=== PATIENT | male | born 1960 | race Caucasian/White ===

== ENCOUNTER 2018-04-28 03:37 | Observation (INO) | payer BC ==
[~2018-04-28] VITALS: Ht 175.3 cm; Wt 88.6 kg
--- NOTE | ~2018-04-28 | OP ---
PATIENT NAME: KAL AQUINO MEDICAL RECORD: [id number] :62 LOCATION:D.M2 D.2101 ADMISSION DATE:04/28/18 SURGEON: MAURA SKINNER MD DATE OF OPERATION: 04/28/2018 PROCEDURES: 1. PTCA stent LAD. 2. Left heart catheterization. 3. Selective coronary angiography. 4. Left ventriculogram. INDICATION: Angina and coronary artery disease. PROCEDURE IN DETAIL: After informed consent was obtained, and after a detailed description of risks, benefits as well as alternative therapies, the patient elected to proceed with angiogram and angioplasty. The right radial area was prepped and draped in normal sterile fashion. Right radial artery was cannulated via modified Seldinger technique with placement of 6-Uzbek sheath. All catheters exchanged through this sheath. FINDINGS: Left ventriculogram was performed in standard 30-degree FAJARDO view, reveals good cardiac wall motion throughout all segments. Overall ejection fraction estimated at 55% to 60%. SELECTIVE CORONARY ANGIOGRAPHY: 1. Left main is with no significant angiographic disease. 2. Left anterior descending has a long area of 95% stenosis throughout the mid vessel. 3. The left circumflex has 95% stenosis of the first obtuse marginal, 90% stenosis in the distal circumflex. 4. Right artery has a long area of 80% and 90% stenosis. PTCA STENT OF THE LAD: The stents used were 2.5 x 38 and 3.0 x 12, both Patrick stents. Result was 0% residual stenosis. OVERALL IMPRESSION: Successful PTCA stent of the LAD from long area of 90+ percent stenosis to 0% residual. TRANSINT:[id number] Voice Confirmation ID: [id number] DOCUMENT ID: [id number] MAURA SKINNER MD at 1059 CC: [id number] DICTATION DATE: 04/28/18 1323 SEO SPECIALIST: 04/28/18 1413 DIS IN 04/29/18 [place] [address]
--- NOTE | ~2018-04-28 | MORECARE ---
CASE MANAGEMENT DISCHARGE SUMMARY PATIENT: KAL AQUINO UNIT: [id number] ADM DATE: 04/28/18 AGE: 58 : 62 SEX: M ROOM/BED: D.2101 AUTHOR: SONA SUERO PHYSICIAN: REFERRING PHYSICIAN: HERBIE SOTO MD DATE OF SERVICE: 04/30/18 Discharge Plan Patient Name: KAL AQUINO Facility: [facility]:[place] : 1960 Planned Disposition: Home Anticipated Discharge Date: 04/29/18 Discharge Date: 04/29/2018 Expected LOS: 1 Initial Reviewer: [email or web address] Initial Review Date: 04/30/2018 Generated: 04/30/18 9:43 am Patient Name: KAL AQUINO Page [id number] at 0844 All edits/amendments must be made on the electronic document DICTATION DATE: 04/30/18842 MEDICAL BILLING AND CODING INSTRUCTOR: KRANTHI 04/30/18842 RPT#: [id number] DC DATE:04/29/18 STATUS: DIS IN [facility] [address] [place] [address] END OF REPORT
--- NOTE | ~2018-04-28 | HEMODYNAMI ---
PATIENT:KAL AQUINO MEDICAL RECORD: [id number] : 62 LOCATION:[address] ADMISSION DATE: 04/28/18 Generatedon:04/28/201813:20 Patient name: KAL AQUINO Patient #: [id number] SSN: : 1960 Date of study: 04/28/2018 Page: Of Hemodynamic Procedure Report Patient Data Patient Demographics Procedure consent was obtained First Name: KAL Gender: Male Last Name: KENIA : 1960 Patient #: [id number] Age: 58 year(s) Race: Unknown Additional ID: [id number] Contact details Address: [address] [place] [address] State: [place] City: [place] Zip code: [address] Past Medical History Allergies: No known allergies Admission Admission Data Admission Date: 04/28/2018 Admission Time: 3:56 Room #: 210 Lab Results Lab Result Date: 04/28/2018 Lab Result Time: 11:50 Biochemistry Name Units Result Min Max BUN mg/dl 8 --(*---)-- 7 18 Creatinine mg/dl 0.7 --(*---)-- 0.6 1.3 CBC Name Units Result Min Max Hematocrit % 44.4 --(*---)-- 42 54 Hemoglobin g/dl 16.1 --(--*-)-- 13.5 17.5 Procedure Procedure Types Cath Procedure Diagnostic Procedure [facility] w/Coronaries Sedation Charges Moderate Sedation up to 15 minutes PCI Procedure Coronary Stent Coronary Stent Initial Procedure Description Procedure Date Procedure Date: 04/28/2018 Procedure Start Time: 13:01 Procedure End Time: 13:18 Procedure Staff Name Function Cameron Clifton MD Performing Physician Josef Gonzales RT Monitor Araceli Coles RN Nurse Meena Fuentes RT Scrub Ruben Chambers RN Podiatry Doctor Procedure Data Cath Procedure Fluoroscopy Diagnostic fluoroscopy Total fluoroscopy Time: 4.5 time: 4.5 min min Diagnostic fluoroscopy Total fluoroscopy dose: 847 dose: 847 mGy mGy Contrast Material Contrast Material Type Amount (ml) Isovue 300 99 Entry Location Entry Primary Successful Side Size Upsize Upsize Entry Closure Bhandari ccessful Closure Location (Fr) 1 (Fr) 2 (Fr) Remarks Device Remarks Radial Right 6 Fr Mechanical artery Short Compression Estimated blood loss: 10 ml Diagnostic catheters Device Type Used For End Catheter Placement DIAGNOSTIC [place] 110cm 5 Procedure Fr catheter ([id number]) Procedure Complications No complications Procedure Medications Medication Administration Route Dosage 0.9% NaCl I.V. 100 ml/hr Oxygen etCO2 Nasal cannula 2 l/min Lidocaine 2% added to field 20 Heparin Flush Bag added to field 2 bags (1000units/500ml NS) Radial Cocktail added to field 1 syringe (Verapomil 2mg/Nitro 400mcg/Heparin 1500units) Versed I.V. 2 mg Fentanyl I.V. 50 mcg Versed I.V. 1 mg Heparin Bolus I.V. 4000 units Hemodynamics Rest HGB: 16.1 (g/dl) Heart Rate: 84 (bpm) Snapshots Pre Cath Intra NCS Post Cath Vital Signs Time Heart Resp SPO2 etCO2 NIBP (mmHg) Rhythm Pain Sedation Rate (ipm) (%) (mmHg) Status Level (bpm) 12:37:44 83 13 98 29.9 143/87(135) NSR 0 (11) 10(A) , No pain 12:42:03 82 16 99 16.4 127/81(105) NSR 0 (11) 10(A) , No pain 12:46:17 81 14 97 30 130/81(108) NSR 0 (11) 10(A) , No pain 12:50:31 83 14 96 32.2 122/81(106) NSR 0 (11) 10(A) , No pain 12:54:44 80 14 96 32.2 123/84(98) NSR 0 (11) 10(A) , No pain 12:59:01 81 13 96 32.2 123/80(94) NSR 0 (11) 10(A) , No pain 13:03:13 84 15 96 30.7 124/82(95) NSR 0 (11) 10(A) , No pain 13:07:22 90 15 97 29.9 111/73(97) NSR 0 (11) 9(A) , No pain 13:11:35 86 14 96 31.4 126/78(102) NSR 0 (11) 9(A) , No pain 13:15:48 89 16 98 30.7 141/87(119) NSR 0 (11) 10(A) , No pain Medications Time Medication Route Dose Verified Delivered Reason Not es Effectiveness by by 12:11:11 0.9% NaCl I.V. 100 Cameron Araceli used for ml/hr Elodia Coles safety investigator/cause analyst 12:11:19 Oxygen etCO2 2 l/min Cameron Araceli used for Nasal Elodia Coles procedure cannula RN 12:11:26 Lidocaine 2% added 20ml Cameron Cameron for local to vial Elodia Clifton MD anesthetic field 12:11:31 Heparin Flush added 2 bags Cameron Cameron used for Bag to Elodia Clifton MD procedure (1000units/500ml field NS) 12:36:41 Radial Cocktail added 1 Cameron Cameron used for (Verapomil to syringe Elodia Clifton MD procedure 2mg/Nitro field 400mcg/Heparin 1500units) 12:58:31 Versed I.V. 2 mg Cameron Araceli for sedation Elodia Coles RN 12:58:47 Fentanyl I.V. 50 mcg Cameron Araceli for sedation Elodia Coles RN 13:03:47 Versed I.V. 1 mg Cameron Araceli for sedation Elodia Coles RN 13:06:56 Heparin Bolus I.V. 4000 Cameron Araceli for bev ified units Elodia Coles anticoagulation with Dr. ROSALIA Clifton Procedure Log Time Note 12:07:31 Time tracking: Regular hours (M-F 7:00 - 5:00) 12:07:36 Plan of Care:Hemodynamics will remain stable., Cardiac rhythm will remain stable., Comfort level will be maintained., Respiratory function will remain adequate., Patient/ family verbilizes understanding of procedure., Procedure tolerated without complication., Recovers from procedure without complications.. 12:11:11 0.9% NaCl 100 ml/hr I.V. was administered by Araceli Coles RN; used for procedure; 12:11:19 Oxygen 2 l/min etCO2 Nasal cannula was administered by Araceli Coles RN; used for procedure; 12:11:26 Lidocaine 2% 20ml vial added to field was administered by Cameron Clifton MD; for local anesthetic; 12:11:31 Heparin Flush Bag (1000units/500ml NS) 2 bags added to field was administered by Cameron Clifton MD; used for procedure; 12:18:27 Ruben Chambers RN sent for patient. Start room use. 12:29:50 Patient received from PCU to CCL 1 Alert and oriented. Tansferred to table in Supine position. 12:29:59 Warm blankets applied, and doron hugger turned on for patient comfort. 12:29:59 Correct patient and procedure confirmed by team. 12:30:01 Signed procedure consent form obtained from patient. 12:30:01 ECG and BP/O2 sat monitors applied to patient. 12:30:02 Full Disclosure recording started 12:36:32 Vital chart was started 12:36:41 Radial Cocktail (Verapomil 2mg/Nitro 400mcg/Heparin 1500units) 1 syringe added to field was administered by Cameron Clifton MD; used for procedure; 12:45:04 Baseline sample Acquired. 12:45:08 Rhythm: sinus rhythm 12:46:39 H&P Date Dictated: 04/28/2018 Within 30 days and on chart.. 12:46:40 Pre-procedure instructions explained to patient. 12:46:41 Pre-op teaching completed and patient verbalized understanding. 12:46:54 Family in waiting room. 12:46:57 Patient NPO since Breakfast. 12:47:05 Patient allergic to No known allergies 12:47:06 Is the patient allergic to Iodine/contrast media? No. 12:48:18 Is patient on blood thinner?No 12:48:22 Patient diabetic? Yes. 12:48:24 If diabetic: On Metformin? No 12:48:39 Previous problem with sedation/anesthesia? No ? 12:48:41 Snore? Yes 12:48:44 Sleep apnea? No 12:48:45 Deviated septum? No 12:48:46 Opens mouth fully? Yes 12:48:48 Sticks out tongue? Yes 12:48:57 Airway obstruction? Yes Possible COPD 12:49:01 Dentures? No ? 12:49:03 Pre procedure: right dorsailis pedis pulse 2+ Normal; easily identifiable; not easily obliterated 12:49:08 Modified Carrillo's test Ulnar < 7 seconds 12:49:10 Patient pain scale 0/10 ?. 12:49:15 IV patent on arrival in right forearm with 0.9% NaCl at [facility]. 12:50:00 Lab Result : BUN 8 mg/dl 12:50:00 Lab Result : Creatinine 0.7 mg/dl 12:50:00 Lab Result : Hemoglobin 16.1 g/dl 12:50:00 Lab Result : Hematocrit 44.4 % 12:50:03 Lab results completed and on chart. 12:50:10 Right Radial & Right Groin area was prepped with chlora-prep and draped in sterile fashion 12:50:11 Alarms reviewed by R. N. 12:50:11 Sharps counted by scrub and verified by R.N. 12:50:14 Use device set Radial Dx or PCI 12:50:15 ACIST Syringe (05623) opened to sterile field. 12:50:15 Medline Cath Pack ([id number]) opened to sterile field. 12:50:15 Bag Decanter (2002S) opened to sterile field. 12:50:16 ACIST Manifold (86798) opened to sterile field. 12:50:17 ACIST Hand Control (27694) opened to sterile field. 12:50:17 Tegaderm 4 x 4 (1626W) opened to sterile field. 12:50:18 MBrace Wrist Support ([id number]) opened to sterile field. 12:50:19 DIAGNOSTIC WIRE .035 260cm J wire (830659) opened to sterile field. 12:50:27 SHEATH 6FR Slender ([id number]) opened to sterile field. 12:52:46 Zero performed for pressure channel P1 12:58:31 Versed 2 mg I.V. was administered by Araceli Coles RN; for sedation; 12:58:46 Physician arrived 12:58:46 --------ALL STOP TIME OUT------ 12:58:47 Fentanyl 50 mcg I.V. was administered by Araceli Coles RN; for sedation; 12:58:47 Final Timeout: patient, procedure, and site verified with staff and physician. All members of the team are in agreement. 12:58:49 Right Radial & Right Groin site verified by team. 12:58:52 Physical assessment completed. ASA score P 2 - A patient with mild systemic disease as per Cameron Clifton MD. 12:58:56 Sedation plan: IV Moderate Sedation Medication:Versed, Fentanyl 13:01:03 Procedure started. 13:01:06 Local anesthetic to right radial artery with Lidocaine 2% by Cameron Clifton MD.INITIAL ACCESS ONLY 13:02:37 SHEATH 6FR Slender ([id number]) opened to sterile field. 13:02:43 A 6 Fr Short sheath was inserted into the Right Radial artery 13:02:49 A DIAGNOSTIC [place] 110cm 5 Fr catheter (008893) was advanced over the wire and used for Procedure. 13:03:47 Versed 1 mg I.V. was administered by Araceli Coles RN; for sedation; 13:04:03 LV gram done using FAJARDO 13:04:05 Injector settings: Ml/sec: 5, Volume: 15, 13:04:09 LV hemodynamics recorded. 13:04:12 EF : 60 % 13:04:16 LCA angiography performed. 13:04:38 CHOICE PT Extra Support 182cm wire ([id number]) opened to sterile field. 13:04:39 INFLATOR Merit BasixCompak (DI6421) opened to sterile field. 13:05:12 RCA angiography performed. 13:05:45 GUIDE 6FR XBLAD 3.5 catheter ([id number]) opened to sterile field. 13:06:56 Heparin Bolus 4000 units I.V. was administered by Araceli Coles RN; for anticoagulation; verified with Dr. Clifton 13:07:46 Catheter removed. 13:07:57 6 Fr XBLAD 3.5 guide catheter was inserted over the wire 13:08:32 CHOICE PT ES wire advanced. 13:08:34 Wire advanced across lesion. 13:09:43 Inflate balloon Inflation number: 1 A EUPHORA 2.5 x 30 Balloon ([id number]) was prepped and advanced across the Prox LAD, then inflated to 17 HARRY for 0:10 (min:sec). 13:09:57 Inflation number: 2 The EUPHORA 2.5 x 30 Balloon ([id number]) was reinflated across the Prox LAD, to 17 HARRY for 0:10 (min:sec). 13:10:08 Balloon removed over the wire. 13:11:28 Place stent Inflation Number: 3 A ANYA RX 2.5 x 38 stent ([id number]) was prepped and advanced across the Prox LAD. The stent was deployed at 17 HARRY for 0:10 (min:sec). 13:12:28 Stent catheter was removed intact over wire. 13:13:47 Place stent Inflation Number: 4 A ANYA RX 3.0 x 12 stent ([id number]) was prepped and advanced across the Prox LAD. The stent was deployed at 17 HARRY for 0:10 (min:sec). 13:14:58 Wire removed. 13:14:59 Guide catheter removed. 13:15:02 TR BAND Standard ([id number]) opened to sterile field. 13:15:10 Sheath removed intact; hemostasis achieved with Mechanical Compression to the Right Radial artery. 13:15:12 Procedure ended.(Physican Out) 13:16:43 Fluoroscopy time 04.50 minutes. 13:16:48 Fluoroscopy dose: 847 mGy 13:16:48 Flurop Dose total: 847 13:16:51 Contrast amount:Isovue 300 99ml. 13:16:52 Sharps counted by scrub and verified by R.N. 13:16:53 Insertion/operative site no bleeding no hematoma. 13:17:23 Post Procedure Pulses reassessed and unchanged 13:17:26 Post-procedure physical assessment completed. ASA score P 2 - A patient with mild systemic disease as per Cameron Clifton MD. 13:17:28 Post procedure rhythm: unchanged. 13:17:30 Estimated blood loss: 10 ml 13:17:32 Post procedure instruction explained to patient.Patient verbalizes understanding. 13:17:32 Patient needs reinforcement of post procedure teaching. 13:17:38 Procedure type changed to Cath procedure, Diagnostic procedure, LHC, LHC w/Coronaries, Sedation Charges, Moderate Sedation up to 15 minutes, PCI procedure, Coronary Stent, Coronary Stent Initial 13:18:33 Procedure and supply charges have been captured, reviewed, submitted and are correct. 13:18:39 Procedure Complication : No complications 13:18:41 Vital chart was stopped 13:18:41 See physician's report for complete and final results. 13:18:50 Report given to PCU. 13:18:53 Patient transfered to PCU with Stretcher. 13:18:55 Procedure ended. 13:18:55 Full Disclosure recording stopped 13:18:58 End room use (Document Last) Intervention Summary Intervention Notes Time ActionType Lesion and Equipment Used Action# Pressure Duration Attributes 13:09:43 Inflate Prox LAD EUPHORA 2.5 x 1 17 00:10 balloon 30 Balloon ([id number]) 13:09:57 Reinflate Prox LAD EUPHORA 2.5 x 2 17 00:10 balloon 30 Balloon ([id number]) 13:11:28 Place stent Prox LAD ANYA RX 2.5 x 3 17 00:10 38 stent ([id number]) 13:13:47 Place stent Prox LAD ANYA RX 3.0 x 4 17 00:10 12 stent ([id number]) Device Usage Item Name Manufacture Quantity Catalog Number Hospital Part Current M inimal Lot# / Charge Number Stock Stock Serial# Code ACIST Syringe Acist 1 55981 473171 882747 774494 2 0 (34030) Medical Systems Inc Medline Cath Medline 1 [id number] 989526 75880 562907 5 Pack ([id number]) Bag Decanter Microtek 1 2001S 516228 71624 340981 5 (2001S) Medical Inc. ACIST Manifold Acist 1 05451 023438 661668 427799 5 (60551) Medical Systems Inc ACIST Hand Acist 1 06386 081280 048445 329411 5 Control Medical (49042) Systems Inc Tegaderm 4 x 4 3M 1 1626W 431000 112708 098438 5 (1626W) MBrace Wrist Advanced 1 140-0250-00 705346 51967 275396 5 Support Vascular ([id number]) Dynamics DIAGNOSTIC [facility] [place] 1 412459 862789 195937 274795 3 0 WIRE .035 260cm J wire (917869) SHEATH 6FR Terumo 2 [id number] 839403 137118 244767 4 0 Slender ([id number]) DIAGNOSTIC Terumo 1 40-2015 197019 317006 802780 5 [place] 110cm 5 Fr catheter (775011) CHOICE PT [place] 1 [id number] 141446 142327 013846 5 Extra Support Scientific 182cm wire ([id number]) INFLATOR Merit Merit 1 VC8689 884018 427683 655015 1 5 Bugcrowd (LW9022) GUIDE 6FR Cardinal 1 [id number] 229422 224366 231296 1 0 XBLAD 3.5 Health catheter (97292470) EUPHORA 2.5 x Medtronic 1 [id number] 134864 985939 047494 5 [id number] 30 Balloon ([id number]) ANYA RX 2.5 x Medtronic 1 [id number] 963943 9207999 301351 5 [id number] 38 stent ([id number]) ANYA RX 3.0 x Medtronic 1 [id number] 801215 0067627 012442 5 [id number] 12 stent ([id number]) TR BAND Terumo 1 [id number] 854028 286635 307379 4 0 Standard ([id number]) Signature Audit [place] Stage Time Signature Unsigned Intra-Procedure 04/28/2018 Josef Gonzales 1:20:03 PM RT(R) Signatures Monitor : Josef Gonzales RT Signature : Date : Time : [place] [id number] SAURABH AVILEZ, RAMAN [address]
--- NOTE | ~2018-04-28 | HEMODYNAMI ---
PATIENT:KAL AQUINO MEDICAL RECORD: [id number] : 62 LOCATION:[facility] D.210 ADMISSION DATE: 04/28/18 Generatedon:04/29/201811:45 Patient name: KAL AQUINO Patient #: [id number] SSN: : 1960 Date of study: 04/29/2018 Page: Of Hemodynamic Procedure Report Patient Data Patient Demographics Procedure consent was obtained First Name: KAL Gender: Male Last Name: KENIA : 1960 Patient #: [id number] Age: 58 year(s) Race: Unknown Accession #: Ethnicity: or [id number] Additional ID: [id number] Contact details Address: [address] [place] [address] State: [place] City: [place] Zip code: [address] Past Medical History Allergies: No known allergies Admission Admission Data Admission Date: 04/28/2018 Admission Time: 3:56 Admit Source: Other Room #: D.2101 Lab Results Lab Result Date: 04/28/2018 Lab Result Time: 11:50 Biochemistry Name Units Result Min Max BUN mg/dl 8 --(*---)-- 7 18 Creatinine mg/dl 0.7 --(*---)-- 0.6 1.3 CBC Name Units Result Min Max Hematocrit % 44.4 --(*---)-- 42 54 Hemoglobin g/dl 16.1 --(--*-)-- 13.5 17.5 Procedure Procedure Types Cath Procedure Diagnostic Procedure Sedation Charges Moderate Sedation up to 15 minutes PCI Procedure Coronary Stent Coronary Stent Initial Coronary Stent Additional Procedure Description Procedure Date Procedure Date: 04/29/2018 Procedure Start Time: 11:27 Procedure End Time: 11:43 Procedure Staff Name Function Cameron Clifton MD Performing Physician Elza Espino RT Monitor Josef Gonzales RT Scrub Araceli Coles RN Nurse Markos Rodriguez RT Dispatch Coordinator Procedure Data Cath Procedure Fluoroscopy Diagnostic fluoroscopy Total fluoroscopy Time: 3.8 time: 3.8 min min Diagnostic fluoroscopy Total fluoroscopy dose: 302 dose: 302 mGy mGy Contrast Material Contrast Material Type Amount (ml) Isovue 300 84 Entry Location Entry Primary Successful Side Size Upsize Upsize Entry Closure Succes sful Closure Location (Fr) 1 (Fr) 2 (Fr) Remarks Device Remarks Femoral Right 6 Fr Exoseal artery Short Estimated blood loss: 10 ml Procedure Complications No complications Procedure Medications Medication Administration Route Dosage 0.9% NaCl I.V. 100 ml/hr Oxygen etCO2 Nasal cannula 2 l/min Lidocaine 2% added to field 20 Heparin Flush Bag added to field 2 bags (1000units/500ml NS) Versed I.V. 2 mg Fentanyl I.V. 50 mcg Versed I.V. 2 mg Fentanyl I.V. 25 mcg Heparin Bolus I.V. 4000 units Hemodynamics Rest HGB: 16.1 (g/dl) Heart Rate: 83 (bpm) Snapshots Pre Cath Intra NCS Post Cath Vital Signs Time Heart Resp SPO2 etCO2 NIBP (mmHg) Rhythm Pain Sedation Rate (ipm) (%) (mmHg) Status Level (bpm) 11:06:18 76 15 99 31.6 156/97(125) NSR 0 (11) 10(A) , No pain 11:10:30 75 15 99 36 144/92(120) NSR 0 (11) 10(A) , No pain 11:14:38 80 14 97 34.6 140/88(104) NSR 0 (11) 10(A) , No pain 11:18:50 78 14 97 31.6 131/86(112) NSR 0 (11) 10(A) , No pain 11:22:58 76 13 97 21 137/88(112) NSR 0 (11) 10(A) , No pain 11:27:07 82 12 98 33.9 137/93(112) NSR 0 (11) 10(A) , No pain 11:31:21 88 13 98 31.6 135/84(107) NSR 0 (11) 10(A) , No pain 11:35:29 87 13 98 32.4 136/84(107) NSR 0 (11) 10(A) , No pain 11:39:43 83 14 98 24 136/83(105) NSR 0 (11) 10(A) , No pain 11:43:55 84 14 98 32.3 143/90(118) NSR 0 (11) 10(A) , No pain Medications Time Medication Route Dose Verified Delivered Reason Notes Effectiveness by by 11:07:04 0.9% NaCl I.V. 100 Cameron Araceli used for ml/hr Elodia Coles front end web designer 11:07:13 Oxygen etCO2 2 Cameron Araceli used for Nasal l/min Elodia Coles procedure cannula RN 11:07:19 Lidocaine 2% added 20ml Cameron Cameron for local to vial Elodia Clifton MD anesthetic field 11:07:24 Heparin Flush added 2 Cameron Cameron used for Bag to bags Elodia Clifton MD procedure (1000units/500ml field NS) 11:21:06 Versed I.V. 2 mg Cameron Araceli for sedation Elodia Coles RN 11:21:14 Fentanyl I.V. 50 Cameron Araceli for sedation mcg Elodia Coles RN 11:27:35 Versed I.V. 2 mg Cameron Araceli for sedation Elodia Coles RN 11:27:39 Fentanyl I.V. 25 Cameron Araceli for sedation mcg Elodia Coles RN 11:29:04 Heparin Bolus I.V. 4000 Cameron Araceli for verif ied units Elodia Coles anticoagulation with Dr. ROSALIA Clifton Procedure Log Time Note 10:45:05 Markos Rodriguez RT(R) sent for patient. Start room use. 11:00:38 Informed consent obtained and on chart 11:00:42 Admit Source: Other 11:01:03 Diagnostic Cath status Elective 11:01:13 Time tracking: Regular hours (M-F 7:00 - 5:00) 11:01:17 Plan of Care:Hemodynamics will remain stable., Cardiac rhythm will remain stable., Comfort level will be maintained., Respiratory function will remain adequate., Patient/ family verbilizes understanding of procedure., Procedure tolerated without complication., Recovers from procedure without complications.. 11:01:23 Patient received from PCU to CCL 1 Alert and oriented. Tansferred to table in Supine position. 11:01:24 Warm blankets applied, and doron hugger turned on for patient comfort. 11:01:25 Correct patient and procedure confirmed by team. 11:01:26 ECG and BP/O2 sat monitors applied to patient. 11:05:10 Vital chart was started 11:05:21 Baseline sample Acquired. 11:05:23 Rhythm: sinus rhythm 11:05:25 Full Disclosure recording started 11:07:03 H&P Date Dictated: 04/28/2018 Within 30 days and on chart.. 11:07:04 0.9% NaCl 100 ml/hr I.V. was administered by Araceli Coles RN; used for procedure; 11:07:05 Pre-procedure instructions explained to patient. 11:07:05 Pre-op teaching completed and patient verbalized understanding. 11:07:07 Family in patients room. 11:07:09 Patient NPO since Midnight. 11:07:13 Oxygen 2 l/min etCO2 Nasal cannula was administered by Araceli Coles RN; used for procedure; 11:07:19 Lidocaine 2% 20ml vial added to field was administered by Cameron Clifton MD; for local anesthetic; 11:07:20 Patient allergic to No known allergies 11:07:23 Is the patient allergic to Iodine/contrast media? No. 11:07:24 Heparin Flush Bag (1000units/500ml NS) 2 bags added to field was administered by Cameron Clifton MD; used for procedure; 11:07:28 Is patient on blood thinner?Yes 11:07:32 ACC The patient was administered the following blood thiners within the last 24 hours: ACCAspirin, ACCPlavix 11:08:14 Patient diabetic? Yes. 11:08:16 ----Pre-sedation anethsthesia assessment.---- 11:08:19 Previous problem with sedation/anesthesia? No ? 11:08:21 Snore? Yes 11:08:22 Sleep apnea? No 11:08:23 Deviated septum? No 11:08:25 Opens mouth fully? Yes 11:08:26 Sticks out tongue? Yes 11:08:30 Airway obstruction? Yes copd 11:08:35 Dentures? No ? 11:08:38 Pre procedure: right dorsailis pedis pulse 2+ Normal; easily identifiable; not easily obliterated 11:08:40 Patient pain scale 0/10 ?. 11:08:52 IV patent on arrival in right forearm with 0.9% NaCl at 10ml/hr. 11:08:59 Lab results completed and on chart. 11:09:03 Right groin area was prepped with chlora-prep and draped in sterile fashion 11::04 Alarms reviewed by R. N. 11::05 Sharps counted by scrub and verified by R.N. 11:17:43 Zero performed for pressure channel P1 11:18:29 Zero performed for pressure channel P1 11:18:35 Zero performed for pressure channel P1 11:18:51 Zero performed for pressure channel P1 11:20:44 --------ALL STOP TIME OUT------ 11:20:45 Final Timeout: patient, procedure, and site verified with staff and physician. All members of the team are in agreement. 11::47 Right groin site verified by team. 11::50 Physical assessment completed. ASA score P 2 - A patient with mild systemic disease as per Cameron Clifton MD. 11::53 Sedation plan: IV Moderate Sedation Medication:Versed, Fentanyl 11::06 Versed 2 mg I.V. was administered by Araceli Coles RN; for sedation; 11::14 Fentanyl 50 mcg I.V. was administered by Araceli Coles RN; for sedation; 11:27:35 Versed 2 mg I.V. was administered by Araceli Coles RN; for sedation; 11:27:36 Procedure started. 11::39 Fentanyl 25 mcg I.V. was administered by Araceli Coles RN; for sedation; 11:27:39 Local anesthetic to right femoral artery with Lidocaine 2% by Cameron Clifton MD.INITIAL ACCESS ONLY 11:28:12 A 6 Fr Short sheath was inserted into the Right Femoral artery 11::41 6 Fr XBLAD 3.5 guide catheter was inserted over the wire 11::04 Heparin Bolus 4000 units I.V. was administered by Araceli Coles RN; for anticoagulation; verified with Dr. Clifton 11::37 CHOICE E 182 wire advanced. 11::59 Wire advanced across lesion. 11:31:00 Inflate balloon Inflation number: 1 A EUPHORA 2.5 x 15 Balloon ([id number]) was prepped and advanced across the 1st Ob Lizy, then inflated to 7 HARRY for 0:10 (min:sec). 11:31:30 Balloon removed over the wire. 11:32:54 Place stent Inflation Number: 2 A ANYA RX 2.5 x 15 stent ([id number]) was prepped and advanced across the 1st Ob Lizy. The stent was deployed at 11 HARRY for 0:10 (min:sec). 11:33:44 Stent catheter was removed intact over wire. 11:35:43 Place stent Inflation Number: 1 A ANYA RX 2.5 x 26 stent ([id number]) was prepped and advanced across the Dist CX. The stent was deployed at 11 HARRY for 0:10 (min:sec). 11:36:21 Stent catheter was removed intact over wire. 11:36:21 Wire removed. 11:36:22 Guide catheter removed. 11:36:30 EXOSEAL 6Fr (EX600) opened to sterile field. 11:37:05 Sheath removed intact; hemostasis achieved with Exoseal to the Right Femoral artery. 11:37:07 Procedure ended.(Physican Out) 11:38:01 Fluoroscopy time 03.80 minutes. 11:38:06 Flurop Dose total: 302 11:38:06 Fluoroscopy dose: 302 mGy 11:38:16 Contrast amount:Isovue 300 84ml. 11:38:19 Post-op/insertion site Right Femoral artery dressed using a 4 x 4 and Tegaderm. 11:38:22 Post right femoral artery:stable, soft, clean and dry 11:38:24 Post-procedure physical assessment completed. ASA score P 2 - A patient with mild systemic disease as per Cameron Clifton MD. 11:38:28 Post procedure rhythm: sinus rhythm 11:38:31 Estimated blood loss: 10 ml 11:38:33 Post procedure instruction explained to patient.Patient verbalizes understanding. 11:38:34 Patient needs reinforcement of post procedure teaching. 11:38:58 Procedure type changed to Cath procedure, Diagnostic procedure, Sedation Charges, Moderate Sedation up to 15 minutes, PCI procedure, Coronary Stent, Coronary Stent Initial, Coronary Stent Additional 11:41:21 Use device set CATH PACK 11:41:23 ACIST Syringe (28015) opened to sterile field. 11:41:24 ACIST Hand Control (71291) opened to sterile field. 11:41:24 ACIST Manifold (76900) opened to sterile field. 11:41:24 Medline Cath Pack ([id number]) opened to sterile field. 11:41:25 Bag Decanter () opened to sterile field. 11:41:25 DIAGNOSTIC WIRE .035 260cm J wire (576111) opened to sterile field. 11:43:01 Procedure and supply charges have been captured, reviewed, submitted and are correct. 11:43:04 Procedure Complication : No complications 11:43:08 Vital chart was stopped 11:43:09 See physician's report for complete and final results. 11:43:11 Report given to PCU. 11:43:13 Patient transfered to PCU with Bed. 11:43:15 Procedure ended. 11:43:15 Full Disclosure recording stopped 11:43:17 End room use (Document Last) Intervention Summary Intervention Notes Time ActionType Lesion and Equipment Used Action# Pressure Duration Attributes 11:31:00 Inflate 1st Ob Lizy EUPHORA 2.5 x 1 7 00:10 balloon 15 Balloon ([id number]) 11:32:54 Place stent 1st Ob Lizy ANYA RX 2.5 x 2 11 00:10 15 stent ([id number]) 11:35:43 Place stent Dist CX ANYA RX 2.5 x 1 11 00:10 26 stent ([id number]) Device Usage Item Name Manufacture Quantity Catalog Hospital Part Current [facility] Lot# / Number Charge Number Stock Stock Serial# Code EUPHORA 2.5 x Medtronic 1 [id number] 065255 995071 050654 5 [id number] 15 Balloon ([id number]) ANYA RX 2.5 x Medtronic 1 [id number] 700031 3187045 773618 5 [id number] 15 stent ([id number]) ANYA RX 2.5 x Medtronic 1 [id number] 133276 6679267 242715 5 [id number] 26 stent ([id number]) EXOSEAL 6Fr Cardinal 1 EX600 284817 542233 208420 10 (EX600) Health ACIST Syringe Acist 1 23326 132303 011182 045247 20 (06725) Medical [employer] Inc ACIST Hand Acist 1 12630 253311 933494 137169 5 Control Medical (26403) Systems Inc ACIST Manifold Acist 1 27550 769039 765779 745885 5 (23444) [employer] Systems [employer] Medline Cath Medline 1 [id number] 743373 60404 168600 5 Pack ([id number]) Bag Decanter Microtek 1 2001S 590146 94457 576288 5 () Medical Inc. DIAGNOSTIC [place] 1 217299 365177 367063 839690 30 WIRE .035 260cm J wire (022650) Signature Audit Jackson Stage Time Signature Unsigned Intra-Procedure 04/29/2018 Elza Espino 11:45:16 AM RT(R) Signatures Monitor : Elza Espino Signature : RT Date : Time : [address] [address]
--- NOTE | ~2018-04-28 | OP ---
PATIENT NAME: KAL AQUINO MEDICAL RECORD: [id number] :62 LOCATION:D.M2 D.2101 ADMISSION DATE:04/28/18 SURGEON: MAURA SKINNER MD DATE OF OPERATION: 04/29/2018 PROCEDURES: 1. PTCA and stent of left circumflex. 2. PTCA and stent of first obtuse marginal. 3. Selective coronary angiography. INDICATION: Angina and coronary artery disease. PROCEDURE IN DETAIL: After informed consent was obtained and after a detailed explanation of the risks, benefits as well as alternative therapies, the patient elected to proceed with angiogram and angioplasty. The right femoral area was prepped and draped in normal sterile fashion. Right femoral artery was cannulated via modified Seldinger technique with placement of 6-[place] sheath. All catheters exchanged through this sheath. FINDINGS: The left circumflex has subtotal occlusion of the first obtuse marginal, 90% stenosis in the distal circumflex. Obtuse marginal was addressed with a 2.5 x 15-mm [place]. Distal was addressed with a 2.5 x 26-mm [place]. The result was 0% residual stenosis. OVERALL IMPRESSION: Successful PTCA and stent of the left circumflex going from 90% initial stenosis to 0% residual. TRANSINT:[id number] Voice Confirmation ID: [id number] DOCUMENT ID: [id number] MAURA SKINNER MD at 1059 CC: [id number] DICTATION DATE: 04/29/18 1142 BEVERAGE STEWARD: 04/29/18 1154 DIS IN 04/29/18 [place] [address]
[2018-04-28 07:36] VITALS: BP 154/86
[2018-04-28 08:38] VITALS: BP 154/86; BMI 28.8
[2018-04-28 09:05] VITALS: BP 113/79
[2018-04-28 09:05] LABS: CALC OSMOLALITY 286 mosm/kg (275-300); CALCIUM 9.4 mg/dL (8.5-10.1); CARBON DIOXIDE 25.6 mmol/L (21.0-32.0); CHLORIDE - SERUM 104 mmol/L (98-107); CREATININE - SERUM 0.7 mg/dL (0.6-1.3); GLUCOSE 244 mg/dL (74-106); POTASSIUM - SERUM 4.5 mmol/L (3.5-5.1); SODIUM 141 mmol/L (136-145); UREA NITROGEN 8 mg/dL (7-18); eGFR NON AFRICAN AMERICAN > 90 mL/min (90-120)
[2018-04-28 12:06] VITALS: BP 138/77
[2018-04-28 12:18] VITALS: Ht 175.3 cm; Wt 88.6 kg
[2018-04-28 12:35] LABS: BASOPHILS 0.6 % (0-2); EOSINOPHILS 3.4 % (0-7); HEMATOCRIT 44.4 % (42.0-54.0); HEMOGLOBIN 16.1 g/dL (13.5-17.5); IMMATURE GRANULOCYTES 0.4 % (0-5); LYMPHOCYTES 39.1 % (15-50); MCH 33.4 pg (26.0-34.0); MCHC 36.3 g/dL (31.0-37.0); MCV 92.1 fL (80.0-100.0); MEAN PLATELET VOLUME 10.8 fL (7.4-10.4); MONOCYTES 9.6 % (2-11); NEUTROPHILS 46.9 % (40-80); PLATELET COUNT 189 10x3/uL (130-400); RBC 4.82 10x6/uL (4.20-6.10); RDW 11.8 % (11.5-14.5); WBC 8.6 10x3/uL (4.8-10.8)
[2018-04-28 17:12] VITALS: BP 124/78
[2018-04-28 18:18] LABS: APPEARANCE CLEAR (CLEAR); BILIRUBIN NEGATIVE (NEGATIVE); COLOR YELLOW (YELLOW); GLUCOSE NEGATIVE (NEGATIVE); KETONE NEGATIVE (NEGATIVE); NITRITE NEGATIVE (NEGATIVE); PROTEIN TRACE mg/dL (NEGATIVE); UROBILINOGEN NORMAL (NORMAL)
[2018-04-28 18:32] LABS: UDS - AMPHET NEGATIVE QUAL (NEGATIVE); UDS - BARB NEGATIVE QUAL (NEGATIVE); UDS - BENZO POSITIVE QUAL (NEGATIVE); UDS - COCAINE NEGATIVE QUAL (NEGATIVE); UDS - OPIATE NEGATIVE QUAL (NEGATIVE); UDS - PCP NEGATIVE QUAL (NEGATIVE); UDS - THC NEGATIVE QUAL (NEGATIVE)
[2018-04-28 20:00] VITALS: BP 127/65
[2018-04-29 04:00] VITALS: BP 146/78
[2018-04-29 05:36] LABS: BASOPHILS 0.4 % (0-2); EOSINOPHILS 2.6 % (0-7); HEMATOCRIT 41.4 % (42.0-54.0); HEMOGLOBIN 15.3 g/dL (13.5-17.5); IMMATURE GRANULOCYTES 0.5 % (0-5); MCH 33.8 pg (26.0-34.0); MCV 91.4 fL (80.0-100.0); MEAN PLATELET VOLUME 10.4 fL (7.4-10.4); NEUTROPHILS 57.5 % (40-80); PLATELET COUNT 181 10x3/uL (130-400); RBC 4.53 10x6/uL (4.20-6.10); RDW 11.8 % (11.5-14.5)
[2018-04-29 05:53] LABS: CALC OSMOLALITY 281 mosm/kg (275-300); CALCIUM 8.5 mg/dL (8.5-10.1); CARBON DIOXIDE 25.2 mmol/L (21.0-32.0); CHLORIDE - SERUM 105 mmol/L (98-107); CHOL - HDL RATIO 6.3 ratio (2.3-4.9); CHOLESTEROL, TOTAL 150 mg/dL (0-200); CREATININE - SERUM 0.6 mg/dL (0.6-1.3); GLUCOSE 202 mg/dL (74-106); HDL CHOLESTEROL 24 mg/dL (32-96); LDL CHOLESTEROL 100 mg/dL (0-100); LDL-HDL RATIO 4.2 ratio (1.5-3.5); POTASSIUM - SERUM 3.8 mmol/L (3.5-5.1); SODIUM 140 mmol/L (136-145); TRIGLYCERIDE 131 mg/dL (30-200); UREA NITROGEN 5 mg/dL (7-18); eGFR NON AFRICAN AMERICAN > 90 mL/min (90-120)
[2018-04-29 08:27] VITALS: BP 125/90
[2018-04-29] MEDS ORDERED: COREG6.25 MG PO (12:48)
[2018-04-29] MEDS ORDERED: PRAVACHOL20 MG PO (12:48)
[2018-04-29] MEDS ORDERED: PLAVIX75 MG PO (12:49)
[2018-04-29] MEDS ORDERED: ASPIRIN81 MG PO ×2 (12:49→13:34)
[2018-04-29 16:00] VITALS: BP 107/75
== END 2018-04-29 17:25 | disposition home or self-care (01) ==
LOC: D.ER 03:37 → D.EDHOLD 03:56 → OBSVTIME 03:56 → D.EDHOLD 03:56 → D.M2 03:56
PROVIDERS: Internal Medicine Interventional Cardiology; Internal Medicine Nephrology
DX: I21.4 Non-ST elevation (NSTEMI) myocardial infarction (principal); I25.119 Atherosclerotic heart disease of native coronary artery with unspecified angina pectoris; F17.213 Nicotine dependence, cigarettes, with withdrawal; E11.9 Type 2 diabetes mellitus without complications; I10 Essential (primary) hypertension

== ENCOUNTER 2018-05-04 07:46 | Outpatient (CLI) | payer BC ==
[~2018-05-04] VITALS: Ht 175.3 cm; Wt 83.6 kg
--- NOTE | ~2018-05-04 | HEMODYNAMI ---
PATIENT:KAL AQUINO MEDICAL RECORD: [id number] : 62 LOCATION:[facility] ADMISSION DATE: 05/04/18 Generatedon:05/04/201810:25 Patient name: KAL AQUINO Patient #: [id number] SSN: : 1960 Date of study: 05/04/2018 Page: Of Hemodynamic Procedure Report Patient Data Patient Demographics Procedure consent was obtained First Name: KAL Gender: Male Last Name: KENIA : 1960 Patient #: [id number] Age: 58 year(s) Race: Unknown Accession #: Ethnicity: or [id number] Additional ID: [id number] Contact details Address: [address] [place] [address] State: [place] City: [place] Zip code: [address] Past Medical History Allergies: No known allergies Admission Admission Data Admission Date: 05/04/2018 Admission Time: 7:46 Admit Source: Other Lab Results Lab Result Date: 05/04/2018 Lab Result Time: 0:00 Biochemistry Name Units Result Min Max BUN mg/dl 12 --(-*--)-- 7 18 Creatinine mg/dl 0.7 --(*---)-- 0.6 1.3 CBC Name Units Result Min Max Hematocrit % 44.7 --(*---)-- 42 54 Hemoglobin g/dl 16.2 --(--*-)-- 13.5 17.5 Procedure Procedure Types Cath Procedure Diagnostic Procedure Sedation Charges Moderate Sedation up to 15 minutes PCI Procedure Coronary Stent Coronary Stent Initial Procedure Description Procedure Date Procedure Date: 05/04/2018 Procedure Start Time: 10:09 Procedure End Time: 10:21 Procedure Staff Name Function Cameron Clifton MD Performing Physician Josef Gonzales RT Monitor Elza Espino RT Scrub Britany Abbott RN Nurse Procedure Data Cath Procedure Fluoroscopy Diagnostic fluoroscopy Total fluoroscopy Time: 3.5 time: 3.5 min min Diagnostic fluoroscopy Total fluoroscopy dose: 192 dose: 192 mGy mGy Contrast Material Contrast Material Type Amount (ml) Isovue 300 41 Entry Location Entry Primary Successful Side Size Upsize Upsize Entry Closure Bhandari ccessful Closure Location (Fr) 1 (Fr) 2 (Fr) Remarks Device Remarks Radial Right 6 Fr Mechanical artery Short Compression Estimated blood loss: 10 ml Diagnostic catheters Device Type Used For End Catheter Placement DIAGNOSTIC [place] 110cm 5 Procedure Fr catheter ([id number]) Procedure Complications No complications Procedure Medications Medication Administration Route Dosage 0.9% NaCl I.V. 100 ml/hr Oxygen etCO2 Nasal cannula 2 l/min Lidocaine 2% added to field 20 Heparin Flush Bag added to field 2 bags (1000units/500ml NS) Versed I.V. 2 mg Fentanyl I.V. 100 mcg Versed I.V. 2 mg Fentanyl I.V. 100 mcg Heparin Bolus I.V. 4000 units Hemodynamics Rest HGB: 16.2 (g/dl) Heart Rate: 75 (bpm) Snapshots Pre Cath Intra NCS Post Cath Vital Signs Time Heart Resp SPO2 etCO2 NIBP (mmHg) Rhythm Pain Sedation Rate (ipm) (%) (mmHg) Status Level (bpm) 9:57:14 71 18 99 24.1 131/83(112) NSR 0 (11) 10(A) , No pain 10:01:24 78 15 97 22.6 125/92(110) NSR 0 (11) 10(A) , No pain 10:05:35 70 17 96 41.4 114/76(97) NSR 0 (11) 10(A) , No pain 10:09:43 62 17 96 43.7 109/80(102) NSR 0 (11) 9(A) , No pain 10:13:53 70 18 96 40.6 104/63(83) NSR 0 (11) 9(A) , No pain 10:18:03 67 18 96 40.6 106/64(85) NSR 0 (11) 10(A) , No pain Medications Time Medication Route Dose Verified Delivered Reason Notes Effectiveness by by 9:25:46 0.9% NaCl I.V. 100 Cameron Mortona used for ml/hr Elodia Coles dieing out machine operator 9:25:55 Oxygen etCO2 2 Cameron Araceli used for Nasal l/min Elodia Coles procedure cannula RN 9:26:01 Lidocaine 2% added 20ml Cameron Barnes for local to vial Elodia Clifton MD anesthetic field 9:26:05 Heparin Flush added 2 Cameron Barnes used for Bag to bags Elodia Clifton MD procedure (1000units/500ml field NS) 10:02:43 Versed I.V. 2 mg Cameron Garg for sedation Elodia Abbott RN 10:02:49 Fentanyl I.V. 100 Cameron Rosasie for sedation mcg Elodia Abbott RN 10:09:08 Versed I.V. 2 mg Cameron Garg for sedation Elodia Abbott RN 10:09:12 Fentanyl I.V. 100 Cameron Garg for sedation mcg Elodia Abbott RN 10:14:37 Heparin Bolus I.V. 4000 Cameron Rosasie for verif ied units Elodia Abbott RN anticoagulation with dr clifton Procedure Log Time Note 9:19:47 Informed consent obtained and on chart 9:19:49 Admit Source: Other 9:20:03 Diagnostic Cath status Elective 9:20:05 Time tracking: Regular hours (M-F 7:00 - 5:00) 9:20:08 Plan of Care:Hemodynamics will remain stable., Cardiac rhythm will remain stable., Comfort level will be maintained., Respiratory function will remain adequate., Patient/ family verbilizes understanding of procedure., Procedure tolerated without complication., Recovers from procedure without complications.. 9:21:11 H&P Date Dictated: 04/28/2018 Within 30 days and on chart.. 9:25:46 0.9% NaCl 100 ml/hr I.V. was administered by Araceli Coles RN; used for procedure; 9:25:55 Oxygen 2 l/min etCO2 Nasal cannula was administered by Araceli Coles RN; used for procedure; 9:26:01 Lidocaine 2% 20ml vial added to field was administered by Cameron Clifton MD; for local anesthetic; 9:26:05 Heparin Flush Bag (1000units/500ml NS) 2 bags added to field was administered by Cameron Clifton MD; used for procedure; 9:32:05 Josef Gonzales RT(R) sent for patient. Start room use. 9:38:58 Patient received from Pre/Post Procedure Room to CCL 1 Alert and oriented. Tansferred to table in Supine position. 9:38:59 Warm blankets applied, and doron hugger turned on for patient comfort. 9:39:00 Correct patient and procedure confirmed by team. 9:39:00 ECG and BP/O2 sat monitors applied to patient. 9:56:11 Baseline sample Acquired. 9:56:11 Vital chart was started 9:56:14 Rhythm: sinus rhythm 9:56:15 Full Disclosure recording started 9:56:16 Pre-procedure instructions explained to patient. 9:56:17 Pre-op teaching completed and patient verbalized understanding. 9:56:19 Family in waiting room. 9:56:20 Patient NPO since Midnight. 9:56:31 Patient allergic to No known allergies 9:56:35 Is the patient allergic to Iodine/contrast media? No. 9:56:38 Is patient on blood thinner?Yes 9:56:40 ACC The patient was administered the following blood thiners within the last 24 hours: ACCPlavix 9:56:42 Patient diabetic? Yes. 9:56:43 If diabetic: On Metformin? No 9:56:45 Previous problem with sedation/anesthesia? No ? 9:56:46 Snore? Yes 9:56:47 Sleep apnea? No 9:56:48 Deviated septum? No 9:56:49 Opens mouth fully? Yes 9:56:50 Sticks out tongue? Yes 9:56:52 Airway obstruction? No ? 9:56:55 Dentures? No ? 9:57:24 Pre procedure: left dorsailis pedis pulse 2+ Normal; easily identifiable; not easily obliterated 9:57:26 Modified Carrillo's test Ulnar < 7 seconds 9:57:32 Patient pain scale 0/10 ?. 9:57:35 IV patent on arrival in left forearm with 0.9% NaCl at KVO. 9:58:51 Lab Result : BUN 12 mg/dl 9:58:52 Lab Result : Creatinine 0.7 mg/dl 9:58:52 Lab Result : Hemoglobin 16.2 g/dl 9:58:52 Lab Result : Hematocrit 44.7 % 9:58:56 Lab results completed and on chart. 9:59:03 Right Radial & Left Groin area was prepped with chlora-prep and draped in sterile fashion 9:59:04 Alarms reviewed by R. N. 9:59:04 Sharps counted by scrub and verified by R.N. 9:59:13 Use device set Radial Dx or PCI 9:59:14 ACIST Syringe (43990) opened to sterile field. 9:59:16 Medline Cath Pack ([id number]) opened to sterile field. 9:59:17 Bag Decanter (2002S) opened to sterile field. 9:59:18 ACIST Hand Control (83548) opened to sterile field. 9:59:19 ACIST Manifold (55326) opened to sterile field. 9:59:19 Tegaderm 4 x 4 (1626W) opened to sterile field. 9:59:20 MBrace Wrist Support ([id number]) opened to sterile field. 9:59:22 DIAGNOSTIC WIRE .035 260cm J wire (367134) opened to sterile field. 9:59:28 Physician arrived 9:59:29 --------ALL STOP TIME OUT------ 9:59:29 Final Timeout: patient, procedure, and site verified with staff and physician. All members of the team are in agreement. 9:59:33 Right Radial & Left Groin site verified by team. 9:59:36 Physical assessment completed. ASA score P 2 - A patient with mild systemic disease as per Cameron Clifton MD. 9:59:39 Sedation plan: IV Moderate Sedation Medication:Versed, Fentanyl 10:02:43 Versed 2 mg I.V. was administered by Britany Abbott RN; for sedation; 10:02:49 Fentanyl 100 mcg I.V. was administered by Britany Abbott RN; for sedation; 10:08:58 SHEATH 6FR Slender ([id number]) opened to sterile field. 10:09:01 Procedure started. 10:09:04 Local anesthetic to right radial artery with Lidocaine 2% by Cameron Clifton MD.INITIAL ACCESS ONLY 10:09:08 Versed 2 mg I.V. was administered by Britany Abbott RN; for sedation; 10:09:10 Zero performed for pressure channel P1 10:09:12 Fentanyl 100 mcg I.V. was administered by Britany Abbott RN; for sedation; 10:09:27 A 6 Fr Short sheath was inserted into the Right Radial artery 10:10:16 CHOICE PT Extra Support 182cm wire ([id number]) opened to sterile field. 10:10:16 INFLATOR Merit BasixCompak (QY5431) opened to sterile field. 10:10:17 GUIDE 6FR AR 2.0 catheter ([id number]) opened to sterile field. 10:10:28 6 Fr AR 2 guide catheter was inserted over the wire 10:11:44 Guide Catheter removed. unable to cannulate vessel. 10:11:57 A DIAGNOSTIC [place] 110cm 5 Fr catheter ([id number]) was advanced over the wire and used for Procedure. 10:13:13 Catheter removed. 10:13:18 6 Fr AR 2 guide catheter was inserted over the wire 10:14:32 CHOICE PT ES wire advanced. 10:14:37 Heparin Bolus 4000 units I.V. was administered by Britany Abbott RN; for anticoagulation; verified with dr clifton 10:16:13 Wire advanced across lesion. 10:17:15 Place stent Inflation Number: 1 A ANYA RX 2.75 x 38 stent ([id number]) was prepped and advanced across the Prox RCA. The stent was deployed at 17 HARRY for 0:10 (min:sec). 10:18:35 Stent catheter was removed intact over wire. 10:18:36 Wire removed. 10:18:37 Guide catheter removed. 10:18:41 TR BAND Standard ([id number]) opened to sterile field. 10:19:08 Sheath removed intact; hemostasis achieved with Mechanical Compression to the Right Radial artery. 10:19:10 Procedure ended.(Physican Out) 10:19:43 Fluoroscopy time 03.50 minutes. 10:19:47 Flurop Dose total: 192 10:19:47 Fluoroscopy dose: 192 mGy 10:20:04 Contrast amount:Isovue 300 41ml. 10:20:05 Sharps counted by scrub and verified by R.N. 10:20:08 TR band inflated with 10cc of air. 10:20:09 Insertion/operative site no bleeding no hematoma. 10:20:10 Post Procedure Pulses reassessed and unchanged 10:20:12 Post-procedure physical assessment completed. ASA score P 2 - A patient with mild systemic disease as per Cameron Clifton MD. 10:20:15 Post procedure rhythm: unchanged. 10:20:18 Estimated blood loss: 10 ml 10:20:19 Post procedure instruction explained to patient.Patient verbalizes understanding. 10:20:19 Patient needs reinforcement of post procedure teaching. 10:20:34 Procedure type changed to Cath procedure, Diagnostic procedure, Sedation Charges, Moderate Sedation up to 15 minutes, PCI procedure, Coronary Stent, Coronary Stent Initial 10:20:50 Procedure and supply charges have been captured, reviewed, submitted and are correct. 10:20:52 Procedure Complication : No complications 10:20:53 Vital chart was stopped 10:20:54 See physician's report for complete and final results. 10:20:56 Report given to Pre/Post Procedure Room. 10:20:58 Patient transfered to Pre/Post Procedure Room with Stretcher. 10:21:05 Procedure ended. 10:21:05 Full Disclosure recording stopped 10:21:07 End room use (Document Last) Intervention Summary Intervention Notes Time ActionType Lesion and Equipment Used Action# Pressure Duration Attributes 10:17:[address] stent Prox RCA ANYA RX 2.75 x 1 17 00:10 38 stent ([id number]) Device Usage Item Name Manufacture Quantity Catalog Number Hospital Part Current M inimal Lot# / Charge Number Stock Stock Serial# Code ACIST Syringe Acist 1 38745 740189 789657 473377 2 0 (10694) Medical Systems Inc Medline Cath Medline 1 [id number] 928749 10832 950697 5 Pack ([id number]) Bag Decanter Microtek 1 2002S 270002 71933 450153 5 (2001S) Medical Inc. ACIST Hand Acist 1 19558 248642 735971 179116 5 Control Medical (39055) Systems Inc ACIST Manifold Acist 1 30632 839184 170632 682396 5 (28152) Medical Systems Inc Tegaderm 4 x 4 3M 1 1626W 408794 802036 156046 5 (1626W) MBrace Wrist Advanced 1 140-0250-00 888415 19366 996204 5 Support Vascular ([id number]) Dynamics DIAGNOSTIC [facility] 1 703351 726869 765998 283044 3 0 WIRE .035 260cm J wire (472684) SHEATH 6FR Terumo 1 [id number] 894028 757549 832401 4 0 Slender ([id number]) CHOICE PT [place] 1 [id number] 559492 322036 699954 5 Extra Support Scientific 182cm wire ([id number]) INFLATOR Merit Merit 1 FP7507 839925 875284 903001 1 5 Primus [facility] (AC0049) GUIDE 6FR AR Medtronic 1 [id number] 159679 98008 909071 1 2.0 catheter (HO4CH89) DIAGNOSTIC Terumo 1 40-4731 614549 997787 038073 5 [place] 110cm 5 Fr catheter (332443) ANYA RX 2.75 x Medtronic 1 [id number] 368223 4741545 123828 5 [id number] 38 stent ([id number]) TR BAND Terumo 1 ZAS28-VER 261580 416951 629670 4 0 Standard ([id number]) Signature Audit [place] Stage Time Signature Unsigned Intra-Procedure 05/04/2018 Josef Gonzales 10:25:01 AM RT(R) Signatures Monitor : Josef Gonzales RT Signature : Date : Time : [place] [address] [place] [address]
--- NOTE | ~2018-05-04 | HP ---
PATIENT: KAL AQUINO MEDICAL RECORD: [id number] ACCOUNT: [id number] LOCATION:[facility] : 62 ADMISSION DATE: 05/04/18 PCP: Undefined Provider HISTORY AND PHYSICAL EXAMINATION DIAGNOSES: 1. Angina. 2. Coronary artery disease. 3. Recent PTCA and stent of LAD and circumflex with concomitant RCA. HISTORY: Mr. Aquino presents with anginal symptomatology, found to have significant heart disease. He underwent PTCA and stent on the left side, now brought back for PTCA and stent of the RCA. PHYSICAL EXAMINATION: GENERAL APPEARANCE: Well-nourished, well-developed, appears stated age. Level of distress, comfortable. PSYCHIATRIC: Mental status, alert, normal affect. Orientation, oriented to time, place and person. EYES: Lids and conjunctiva, noninjected. No discharge, no pallor. ENT: Lips, teeth, gums, normal dentition. Oropharynx, no cyanosis, no pallor. NECK: Carotid arteries, bilateral normal upstroke, no bruits, no thrills. JUGULAR VEINS: No jugular venous pressure or distention. CERVICAL LYMPH NODES: Nontender, nonenlarged. THYROID: Not enlarged. Nontender. No nodules. LUNGS: Respiratory effort, unlabored. CHEST: Normal curvature. No thoracic deformity. No chest wall tenderness. Percussion, resonant. Auscultation, clear. No wheezes, no rales, no rhonchi. CARDIOVASCULAR: Precordial exam, nondisplaced. No heaves or pericardial thrills. Rate and rhythm, regular. Heart sounds, normal S1, normal S2. No S3, no gallop, no rub. Systolic murmur, not heard. Diastolic murmur, not heard. EXTREMITIES: No cyanosis, no edema. Peripheral pulses, full and equal in all extremities, except as noted. No bruits appreciated. ABDOMEN: Soft, nondistended. Normal aorta. No bruit. Nontender. No masses. Liver, nontender, no hepatomegaly. Spleen, nontender, no splenomegaly. MUSCULOSKELETAL: No joint tenderness. No joint swelling. No erythema. NEUROLOGICAL: Normal gait, normal strength, normal tone. SKIN: Warm and dry. OVERALL IMPRESSION: Anginal symptomatology with significant disease of the RCA. We will proceed with PTCA and stent of the RCA. TRANSINT:[id number] Voice Confirmation ID: [id number] DOCUMENT ID: [id number] MAURA SKINNER MD at 1031 CC: [id number] DICTATION DATE: 05/04/18 1525 FARM AGENT: 05/04/18 1603 DEP CLI 05/04/18 [place] [id number] [place] [id number]
--- NOTE | ~2018-05-04 | OP ---
PATIENT NAME: KAL AQUINO MEDICAL RECORD: [id number] :62 LOCATION:[facility] ADMISSION DATE: SURGEON: MAURA SKINNER MD DATE OF OPERATION: 05/04/2018 PROCEDURES: 1. PTCA stent RCA. 2. Selective coronary angiography. INDICATION: Angina and coronary artery disease. PROCEDURE IN DETAIL: After informed consent was obtained and after a detailed description of risks, benefits as well as alternative therapies, the patient elected to proceed with angiogram and angioplasty. The right radial area was prepped and draped in normal sterile fashion. Right radial artery was cannulated via modified Seldinger technique with placement of 6-Hungarian sheath. All catheters exchanged through this sheath. FINDINGS: The right coronary artery has multiple areas of up to 85% stenosis throughout the mid vessel. These were all covered with a 2.75 x 38 mm Patrick, taken to 19 atmospheres. Result was 0% residual stenosis. OVERALL IMPRESSION: Successful percutaneous transluminal coronary angioplasty stent of the right coronary artery going from multiple areas of 80% to 85% initial stenosis to 0% residual. TRANSINT:[id number] Voice Confirmation ID: [id number] DOCUMENT ID: [id number] MAURA SKINNER MD at 1031 CC: [id number] DICTATION DATE: 05/04/18 1022 SERVICE ESTABLISHMENT ATTENDANT: 05/04/18 1037 DEP CLI 05/04/18 [place] [address] [place] [address]
[~2018-05-04 07:46] MED LIST: ASPIRIN81 MG PO; COREG6.25 MG PO; PLAVIX75 MG PO; PRAVACHOL20 MG PO
[2018-05-04 08:21] VITALS: BP 157/91; Ht 175.3 cm; Wt 83.6 kg
[2018-05-04 08:45] LABS: BASOPHILS 0.8 % (0-2); EOSINOPHILS 3.2 % (0-7); HEMATOCRIT 44.7 % (42.0-54.0); HEMOGLOBIN 16.2 g/dL (13.5-17.5); IMMATURE GRANULOCYTES 0.3 % (0-5); LYMPHOCYTES 34.6 % (15-50); MCH 33.1 pg (26.0-34.0); MCHC 36.2 g/dL (31.0-37.0); MCV 91.2 fL (80.0-100.0); MEAN PLATELET VOLUME 10.8 fL (7.4-10.4); MONOCYTES 10.2 % (2-11); NEUTROPHILS 50.9 % (40-80); PLATELET COUNT 214 10x3/uL (130-400); RDW 11.8 % (11.5-14.5); WBC 7.2 10x3/uL (4.8-10.8)
[2018-05-04 08:51] LABS: CALC OSMOLALITY 281 mosm/kg (275-300); CALCIUM 9.4 mg/dL (8.5-10.1); CHLORIDE - SERUM 102 mmol/L (98-107); CREATININE - SERUM 0.7 mg/dL (0.6-1.3); GLUCOSE 247 mg/dL (74-106); POTASSIUM - SERUM 4.8 mmol/L (3.5-5.1); SODIUM 137 mmol/L (136-145); UREA NITROGEN 12 mg/dL (7-18); eGFR NON AFRICAN AMERICAN > 90 mL/min (90-120)
== END 2018-05-04 14:30 | disposition home or self-care (01) ==
LOC: D.CATH 07:46
PROVIDERS: Internal Medicine Interventional Cardiology
DX: I25.119 Atherosclerotic heart disease of native coronary artery with unspecified angina pectoris (principal); Z01.812 Encounter for preprocedural laboratory examination

== ENCOUNTER → 2019-04-05 10:01 | Outpatient (CLI) | payer BC ==
[2018-05-04 08:21] VITALS: BMI 27.2
--- NOTE | 2019-04-09 13:28 | ST ---
PATIENT:KAL AQUINO MEDICAL RECORD: [id number] SEX: M LOCATION:[facility] ORDER #: ADMISSION DATE: 04/05/19 AGE OF PATIENT: 59 REFERRING PHYSICIAN: INTERPRETING PHYSICIAN: MAURA SKINNER MD DATE OF SERVICE: 04/05/2019 PROCEDURE: Nuclear stress test. INDICATIONS: Angina, coronary artery disease, hypertension, and hyperlipidemia. He was exercised on standard Eron protocol for 6 minutes achieving 85% max target heart rate response with 33 mCi of sestamibi injected at peak stress, 11 mCi used previously for rest images. FINDINGS: Gated SPECT reveals preserved ejection fraction at 69% with decreased thickening and brightening throughout the inferior segments. SPECT imaging: Cardiolite was used as myocardial perfusion agent. There is a fixed perfusion defect inferiorly compatible with previous inferior myocardial infarction. It includes the basal, mid, apical, inferior segments. There is no degree of reversibility. The remaining segments with homogeneous uptake at rest and stress. OVERALL IMPRESSION: This is a stable minimally abnormal nuclear stress test showing only a previous inferior myocardial infarction. No ongoing ischemic burden. Ejection fraction preserved at 69%. Continue medical management of the coronary artery disease and cardiac risk factors. TRANSINT:[id number] Voice Confirmation ID: [id number] DOCUMENT ID: [id number] MAURA SKINNER MD at 1328 CC: [id number] DICTATION DATE: 04/05/19 1615 CEREAL MAKER: 04/06/19 0422 DEP CLI 04/05/19 [place] [id number] [place] [id number]
== END | disposition home or self-care (01) ==
LOC: D.HCCARDIO 10:01
PROVIDERS: ATTEND Internal Medicine Interventional Cardiology
DX: I25.10 Atherosclerotic heart disease of native coronary artery without angina pectoris (principal)